=== PATIENT | female | born 2000 | race Native Hawaiian/Other Pacific Islander ===

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

== ENCOUNTER 2021-03-06 17:53 | Emergency (ER) | payer OTHER ==
[~2021-03-06] VITALS: Ht 161.3 cm; Wt 98.4 kg
[2021-03-06 18:00] VITALS: BP 129/90; TEMP 99.6
== END 2021-03-06 19:00 | disposition home or self-care (01) ==
LOC: ED 17:53
DX: Z53.21 Procedure and treatment not carried out due to patient leaving prior to being seen by health care provider (principal)
CPT/HCPCS: 96372; 99281; 99283

== ENCOUNTER 2022-01-09 13:30 | Emergency (ER) | payer OTHER ==
[2022-01-09 17:31] LABS: POTASSIUM 3.7 mmol/L (3.6-5.2)
[2022-01-09 18:10] LABS: PLATELET COUNT 253 K/uL (152-353)
== END 2022-01-09 15:53 | disposition home or self-care (01) ==
LOC: ED 13:30
PROVIDERS: Family Medicine
DX: K52.89 Other specified noninfective gastroenteritis and colitis (principal); R11.2 Nausea with vomiting, unspecified; R19.7 Diarrhea, unspecified
CPT/HCPCS: 36415; 80053; 81000; 81025; 82150; 83690; 85027; 87086; 87088; 96360; 96374; 96375; 99284; J1885; J2405

== ENCOUNTER 2022-07-25 15:08 | Emergency (ER) | payer OTHER ==
[~2022-07-25] VITALS: Ht 161.3 cm; Wt 104.3 kg
[2022-07-25 16:32] LABS: PLATELET COUNT 196 K/uL (152-353)
[2022-07-25 19:48] VITALS: BP 137/77; TEMP 98.5
== END 2022-07-25 17:36 | disposition home or self-care (01) ==
LOC: ED 15:08
PROVIDERS: Family Medicine
DX: R10.13 Epigastric pain (principal); R14.3 Flatulence; T14.8XXA Other injury of unspecified body region, initial encounter; X58.XXXA Exposure to other specified factors, initial encounter; Y92.89 Other specified places as the place of occurrence of the external cause; Z33.1 Pregnant state, incidental
CPT/HCPCS: 80053; 81002; 82550; 85027; 99284

== ENCOUNTER 2022-10-03 02:10 | Emergency (ER) | payer OTHER ==
[~2022-10-03] VITALS: Ht 161.3 cm; Wt 108.9 kg
[2022-10-03 02:10] VITALS: BP 102/58; TEMP 97.6
== END 2022-10-03 02:30 | disposition home or self-care (01) ==
LOC: ED 02:10
DX: Z53.21 Procedure and treatment not carried out due to patient leaving prior to being seen by health care provider (principal)
CPT/HCPCS: 99281